=== PATIENT | male | born 1945 | race Caucasian/White ===

== ENCOUNTER → 2025-07-06 | Outpatient (CLI) | payer MEDICARE, SELFPAY ==
--- NOTE | 2025-07-06 14:00 | XR_ITS ---
Examination: CT lung low dose screening, without contrast. 2-D sagittal reconstructions. 2-D coronal reconstructions. 3-D reconstructions. Date and time of exam: July 06, 2025, 1415 hours INDICATIONS: Diagnosis chest pain 1 month, diagnosis pulmonary fibrosis unspecified CTDI: vol (mGy): 8.78 DLP: (mGycm): 376 Technique: Multiple 1.25 mm axial sections of the lung low-dose screening have been obtained. 2-D sagittal and coronal reconstructions have been obtained. 3-D reconstructions have been obtained. Low dose protocols were performed. One or more of the following dose reduction techniques were used; automated exposure control, adjustment of the mA and/or KV according to patient size, use of iterative reconstruction technique. Findings: No thoracic aortic aneurysmal dilatation Pulmonary artery segments are not enlarged Moderate calcification left anterior descending coronary artery 3 mm pulmonary nodule left lower lobe image 63 No pneumonia or pulmonary edema No pulmonary fibrosis No visualized liver or splenic lesion Contracted gallbladder No pancreatic or adrenal mass IMPRESSION: 3 mm noncalcified pulmonary nodule left lower lobe, recommend 6-month follow-up CT chest without contrast to document stability of this nodule No pulmonary edema, pneumonia or pleural disease No pulmonary fibrosis
== END | disposition home or self-care (01) ==
PROVIDERS: PCP Family Medicine; Referring Provider Family Medicine; Visit Provider Family Medicine
DX: R91.1 Solitary pulmonary nodule (principal)
CPT/HCPCS: 71271